=== PATIENT | male | born 1975 | race Two or more races ===

== ENCOUNTER 2020-01-01 01:49 | Emergency (ER) | payer OTHER ==
[~2020-01-01] VITALS: Ht 170.2 cm; Wt 117.9 kg
[2020-01-01] MEDS ORDERED: ONDANSETRON 4 MG TAB.RAPDIS SL ONE ×2 (02:00→04:30)
[2020-01-01] MEDS ORDERED: ONDANSETRON 4 MG TAB.RAPDIS ONE ×2 (02:00→04:22)
--- NOTE | 2020-01-01 02:05 | NUR ---
PT CAME TO THE ED C/O ETOH. LAST DRINK 2 HOURS TOBACCO STEMMER MACHINE. PT STATES HE HAD BEEN DRINKING FOR THE PAST TWO DAYS. PT AAOX4, RESPIRATIONS EVEN AND UNLABORED ON RA W/ NAD NOTED. PT CONNECTED TO THE [employer]IST AND POX.
--- NOTE | 2020-01-01 03:50 | NUR ---
PT VERBALLY ABUSIVE TO STAFF. YELLING. DESPITE THERAPEUTIC MEASURES
--- NOTE | 2020-01-01 04:00 | NUR ---
DR GABRIEL MADE AWARE OF PT'S RUDE BEHAVIOR. DR GABRIEL CAME TO BEDSIDE
--- NOTE | 2020-01-01 04:45 | NUR ---
Patient discharged to home in stable condition. Refuses to get aftercare instructions. pt. ambulatory with a steady gait
[2020-01-01 04:47] VITALS: BP 107/84
== END 2020-01-01 04:50 | disposition home or self-care (01) ==
LOC: ER 01:54
DX: F10.129 Alcohol abuse with intoxication, unspecified (principal); I48.91 Unspecified atrial fibrillation; E11.9 Type 2 diabetes mellitus without complications; Y90.9 Presence of alcohol in blood, level not specified
CPT/HCPCS: 82962; 99283; Q0162 ×2